=== PATIENT | male | born 1950 | race Caucasian/White ===

== ENCOUNTER 2020-11-07 14:11 | Inpatient (IN) | payer MEDICARE, OTHER ==
[~2020-11-07] VITALS: Ht 185.4 cm; Wt 145.1 kg
[~2020-11-07 14:11] MED LIST: ATORVASTATIN CA20 MG PO; CLEOCIN HCL300 MG PO; KEFLEX500 MG PO; LANTUS INS100 UTS/M1 SQ; LOSARTAN-HCTZ1 EAC1 PO; OMNICEF 300 MG300 MG PO; ROCEPHIN 2 GM AD2 GM IV; TRULICITY0.75 MG/0. SQ
[2020-11-07 14:47] LABS: HEMOGLOBIN 14.8 gm/dl (14.0-17.5); RED BLOOD COUNT 4.81 M/UL (4.20-5.50); WHITE BLOOD COUNT 11.9 K/UL (4.5-11.0)
[2020-11-07 15:11] LABS: BUN/CREATININE RATIO 22 (0-10)
[2020-11-08 04:32] LABS: HEMOGLOBIN 12.7 gm/dl (14.0-17.5); RED BLOOD COUNT 4.15 M/UL (4.20-5.50); WHITE BLOOD COUNT 14.1 K/UL (4.5-11.0)
[2020-11-08 05:11] LABS: BUN/CREATININE RATIO 18 (0-10)
[2020-11-08] MEDS ORDERED: LOSARTAN-HCTZ1 EAC1 PO (10:51)
[2020-11-09 06:33] LABS: HEMOGLOBIN 12.5 gm/dl (14.0-17.5); RED BLOOD COUNT 4.09 M/UL (4.20-5.50)
[2020-11-09 06:34] LABS: WHITE BLOOD COUNT 7.1 K/UL (4.5-11.0)
[2020-11-09 06:57] LABS: BUN/CREATININE RATIO 15 (0-10)
[2020-11-10 07:18] LABS: HEMOGLOBIN 13.1 gm/dl (14.0-17.5); RED BLOOD COUNT 4.24 M/UL (4.20-5.50); WHITE BLOOD COUNT 5.5 K/UL (4.5-11.0)
[2020-11-10 07:59] LABS: BUN/CREATININE RATIO 12 (0-10)
[2020-11-10] MEDS ORDERED: CLEOCIN HCL300 MG PO (12:33)
[2020-11-11 23:10] LABS: ACINETOBACTER BAUMANNII Not Detected (Negative); CANDIDA ALBICANS Not Detected (Negative); CANDIDA KRUSEI Not Detected (Negative); CANDIDA TROPICALIS Not Detected (Negative); ENTEROCOCCUS Not Detected (Negative); ESCHERICHIA COLI Not Detected (Negative); HAEMOPHILUS INFLUENZAE Not Detected (Negative); KLEBSIELLA OXYTOCA Not Detected (Negative); KLEBSIELLA PNEUMONIAE Not Detected (Negative); KPC-CARBAPENEM-RESISTANCE GENE Not Detected (Negative); PROTEUS Not Detected (Negative); PSEUDOMONAS AERUGINOSA Not Detected (Negative); SERRATIA MARCESANS Not Detected (Negative); STAPHYLOCOCCUS Not Detected (Negative); STAPHYLOCOCCUS AUREUS Not Detected (Negative); STREP AGALACTIAE (GROUP B) Not Detected (Negative); STREP PYOGENES (GROUP A) Not Detected (Negative); STREPTOCOCCUS Not Detected (Negative); mecA (METHICILLIN RESIST GENE Not Detected (Negative); vanA/B (VANCOMYCIN RESIST GENE Not Detected (Negative)
== END 2020-11-10 14:00 | disposition home or self-care (01) | DRG 872 ==
LOC: ER1 14:11 → MED SURG 4 18:02 → CDU 18:02 → MED SURG 4 11-08 13:59
PROVIDERS: Physician Assistant; Physician Assistant Medical; ADMIT Internal Medicine
DX: A41.9 Sepsis, unspecified organism (principal); L03.116 Cellulitis of left lower limb; E87.2 Acidosis; Z68.41 Body mass index [BMI] 40.0-44.9, adult; L97.921 Non-pressure chronic ulcer of unspecified part of left lower leg limited to breakdown of skin; Z20.822 Contact with and (suspected) exposure to COVID-19; I87.8 Other specified disorders of veins; E66.01 Morbid (severe) obesity due to excess calories; Z96.653 Presence of artificial knee joint, bilateral; E87.6 Hypokalemia; E11.9 Type 2 diabetes mellitus without complications; I10 Essential (primary) hypertension; E78.5 Hyperlipidemia, unspecified; I87.2 Venous insufficiency (chronic) (peripheral); Z79.4 Long term (current) use of insulin; Z80.1 Family history of malignant neoplasm of trachea, bronchus and lung; Z80.3 Family history of malignant neoplasm of breast; Z88.8 Allergy status to other drugs, medicaments and biological substances
CPT/HCPCS: 0240U; 36415; 71045; 73701; 80053; 80202; 81001; 82550; 82553; 82962; 83605; 83735; 83874; 83880; 84484; 85025; 85027; 85652; 86140; 87040; 87081; 87086; 87150; 93005; 93971; 96374; 99285; C9113; J0692; J1650; J3370; J7030; J7070; J7120; Q9967

== ENCOUNTER → 2021-08-24 | Outpatient (CLI) | payer MEDICARE, OTHER | LOC: KOH-I 10:11 | DX: M17.0 Bilateral primary osteoarthritis of knee (principal) | CPT/HCPCS: 73562 ==